=== PATIENT | male | born 1955 | race Caucasian/White ===

== ENCOUNTER 2017-08-25 09:56 | Emergency (ER) | payer MEDICAID ==
[~2017-08-25] VITALS: Ht 180.3 cm; Wt 96.2 kg
[2017-08-25] MEDS ORDERED: ATOR-2 PO (10:20)
[2017-08-25] MEDS ORDERED: LISI1TAB7 PO (10:20)
[2017-08-25] MEDS ORDERED: OMEP-110 PO (10:20)
[2017-08-25] MEDS ORDERED: DIAZ10TA PO (10:20)
[2017-08-25] MEDS ORDERED: OMNIPAQUE 350 MG/ML, 150 ML BOTTLE ONE (10:57)
[2017-08-25 11:16] VITALS: BP 175/95
[2017-08-25] MEDS ORDERED: FENTANYL PF 100 MCG/2ML ONE ×2 (12:23)
[2017-08-25] MEDS ORDERED: MIDAZOLAM 1 MG/ML, 5ML ONE (12:23)
[2017-08-25] MEDS ORDERED: DIPHENHYDRAMINE 50 MG/ML, 1ML ONE (13:39)
== END 2017-08-25 13:59 | disposition home or self-care (01) ==
LOC: ED 11:05
DX: K21.0 Gastro-esophageal reflux disease with esophagitis (principal); K22.8 Other specified diseases of esophagus; R13.10 Dysphagia, unspecified; I10 Essential (primary) hypertension; E78.00 Pure hypercholesterolemia, unspecified
CPT/HCPCS: 43239; 43248; 74220; 88305; 99152; 99153; 99285; J1200; J2250; J3010; Q9967

== ENCOUNTER 2018-05-29 18:23 | Emergency (ER) | payer MEDICAID ==
[~2018-05-29] VITALS: Ht 180.3 cm; Wt 101.7 kg
[~2018-05-29 18:23] MED LIST: ATOR-2 PO; DIAZ10TA PO; LISI1TAB7 PO; OMEP-110 PO
[2018-05-29 18:35] VITALS: BP 179/91
[2018-05-29] MEDS ORDERED: HYDROcodone/APAP 5/325 TABLET PO ONE (19:30)
[2018-05-29] MEDS ORDERED: HYDROcodone/APAP 5/325 TABLET ONE (19:42)
== END 2018-05-29 19:49 | disposition home or self-care (01) ==
LOC: ED 18:23
DX: S42.131A Displaced fracture of coracoid process, right shoulder, initial encounter for closed fracture (principal); G89.11 Acute pain due to trauma; I10 Essential (primary) hypertension; F17.200 Nicotine dependence, unspecified, uncomplicated; W01.0XXA Fall on same level from slipping, tripping and stumbling without subsequent striking against object, initial encounter; Y93.89 Activity, other specified; Y92.828 Other wilderness area as the place of occurrence of the external cause; Y99.8 Other external cause status
CPT/HCPCS: 99283

== ENCOUNTER 2020-05-21 11:20 | Emergency (ER) | payer MEDICARE, MEDICAID ==
[~2020-05-21] VITALS: Ht 180.3 cm; Wt 96.1 kg
[~2020-05-21 11:20] MED LIST changes: +LISI1TAB20 PO; -LISI1TAB7 PO
--- NOTE | 2020-05-21 11:40 | NUR ---
PT STATES LAST NIGHT WHEN HAVING DINNER HE COULDNT PUT ANY FOOD DOWN. WENT TO BATHROOM AND VOMITED FOOD UP. HAS NOT BEEN ABLE TO GET FOOD OR WATER DOWN SINCE LAST NIGHT. DENIES CHEST PAIN, SOB, HEADACHE.
--- NOTE | 2020-05-21 11:44 | NUR ---
REQUESTED ON A COCA COLA FROM DIETARY.
--- NOTE | 2020-05-21 12:03 | NUR ---
PERFORMING COCA COLA TEST ON PT IN ROOM. PT SIPPING ON COKE AND FLUID IS GOING DOWN TO STOMACH. PT IS GAGGING SLIGHTLY ON FLUID, BURPING, AND HAVING DIFFICULTY. CORRECTION THROUGH TEST PT TOOK A SIP OF COKE AND IT CAME BACK UP AND SPIT IT OUT.
--- NOTE | 2020-05-21 12:38 | NUR ---
PT OFF UNIT IN IMAGING
--- NOTE | 2020-05-21 13:20 | NUR ---
PT LYING IN BED.
[2020-05-21] MEDS ORDERED: PROPOFOL 10 MG/ML, 20ML ONE ×2 (14:09→14:11)
[2020-05-21] MEDS ORDERED: FENTANYL PF 100 MCG/2ML ONE (14:10)
[2020-05-21] MEDS ORDERED: MIDAZOLAM 1 MG/ML, 2ML ONE (14:18)
--- NOTE | 2020-05-21 14:30 | NUR ---
PT BROUGHT INTO TRAUMA 3 FOR EGD PROCEDURE. PT TOLERATED WELL AND IS NOW BEING MONITORED
[2020-05-21 14:31] VITALS: BP 161/89
--- NOTE | 2020-05-21 14:33 | NUR ---
PT IV LATE ENTRY DUE TO PT CARE.
--- NOTE | 2020-05-21 15:03 | NUR ---
REPORT GIVEN TO ENRIKE CUMMINS.
== END 2020-05-21 15:13 | disposition home or self-care (01) ==
LOC: ED 12:01
DX: T18.128A Food in esophagus causing other injury, initial encounter (principal); E78.00 Pure hypercholesterolemia, unspecified; I10 Essential (primary) hypertension; R00.0 Tachycardia, unspecified; X58.XXXA Exposure to other specified factors, initial encounter; Y93.89 Activity, other specified; Y92.89 Other specified places as the place of occurrence of the external cause; Y99.8 Other external cause status
CPT/HCPCS: 74220; 99285

== ENCOUNTER 2020-10-11 09:27 | Day surgery (SDC) | payer MEDICARE, MEDICAID ==
[~2020-10-11] VITALS: Ht 180.3 cm; Wt 95.0 kg
--- NOTE | 2020-10-11 09:57 | NUR ---
PATIENT WALKED BACK FROM TRIAGE WITH CHIEF C/O "MY ESOPHAGUS IS CLOSING UP." PER PATIENT SYMPTOMS STARTED LAST NIGHT AROUND 7, AND HE HAS HAD THIS ISSUE BEFORE. HE HAS SURGERY SCHEDULED IN A FEW WEEKS AT DR. GRANGER'S OFFICE. CUBA, CONNECTED TO MONITOR, VSS, CALL LIGHT WITHIN REACH. FAMILY MEMBER AT BEDSIDE.
--- NOTE | 2020-10-11 09:57 | NUR ---
ERMD AT BEDSIDE FOR EVALUATION.
--- NOTE | 2020-10-11 10:22 | NUR ---
20 GAUGE IV STARTED LEFT AC, BLOOD COLLECTED, LABELLED AND SENT TO LAB, [facility]. CONNECTED TO MONITOR, VSS, CALL LIGHT WITHIN REACH.
[2020-10-11 10:26] LABS: BASOPHILS % (AUTO) 1 % (0-1); EOSINOPHILS % (AUTO) 1 % (1-7); LYMPHOCYTES % (AUTO) 20 % (22-44); MEAN CORPUSCULAR HEMOGLOBIN 33.8 pg (27.5-34.5); MEAN CORPUSCULAR HGB CONC 34.4 g/dL (33.2-36.2); MEAN PLATELET VOLUME 9.4 fL (7.4-10.4); MONOCYTES % (AUTO) 9 % (2-9); NEUTROPHILS % (AUTO) 69 % (42-75); PLATELET COUNT 212 x10^3/uL (130-400); RED BLOOD COUNT 4.75 x10^6/uL (4.38-5.82); RED CELL DISTRIBUTION WIDTH 13.9 % (9.4-14.8)
[2020-10-11] MEDS ORDERED: SODIUM CHLORIDE FLUSH 10ML SYR IVF ONE (10:30)
[2020-10-11] MEDS ORDERED: SODIUM CHLORIDE 0.9% 1,000ML IVBOLUS ONE (10:30)
[2020-10-11 10:35] LABS: ALANINE AMINOTRANSFERASE 60 U/L (12-78); ALBUMIN 3.6 g/dL (3.4-5.0); ANION GAP 4 mmol/L (5-15); CALCIUM 8.5 mg/dL (8.5-10.1); CHLORIDE 107 mmol/L (98-107); CREATININE 0.81 mg/dL (0.7-1.3)
[2020-10-11 10:37] LABS: ALKALINE PHOSPHATASE 91 U/L (45-117); BILIRUBIN,TOTAL 1.3 mg/dL (0.2-1.0); TOTAL PROTEIN 7.2 g/dL (6.4-8.2)
--- NOTE | 2020-10-11 10:43 | NUR ---
PATIENT TO IMAGING.
[2020-10-11 11:28] VITALS: BP 172/90
--- NOTE | 2020-10-11 11:28 | NUR ---
PATIENT BACK FROM IMAGING, RESTING IN [facility], CONNECTED TO MONITOR, VSS, CALL LIGHT WITHIN REACH, NO FURTHER NEEDS AT THIS TIME. WAITING FOR ESOPHAGRAM RESULTS.
--- NOTE | 2020-10-11 12:02 | NUR ---
Break RN note: Pt in T2 for upper endoscopy. Nancy CUMMINS to perform procedural sedation.
[2020-10-11] MEDS ORDERED: PROPOFOL 10 MG/ML, 20ML ONE (12:10)
[2020-10-11] MEDS ORDERED: PROPOFOL 10 MG/ML, 20ML IVPush ONE ×2 (12:30→14:00)
--- NOTE | 2020-10-11 13:07 | NUR ---
1129: TIME OUT 1130: START 1242: END SEE PROCEDURAL SEDATION PACKET PT WAS FULLY AWAKE BY END OF ENDOSCOPY WASTED 160MG PROPOFOL WITH NEVIN RN INTO APPROP REC. PT DRINKING WATER, VSS. RIDE ON WAY TO PICK HIM UP.
--- NOTE | 2020-10-11 13:09 | NUR ---
Report from Nancy CUMMINS. Pt resting in bed, drinking water, NADN, denies needs. Awaiting dc paperwork and pt's family to come pick him up.
--- NOTE | 2020-10-11 13:09 | NUR ---
Previous note by this RN, not Adeline fitch.
== END 2020-10-11 14:06 | disposition home or self-care (01) ==
LOC: ED 11:24 → OUT 11:24 → ED 14:06 → EDSTATUS 15:28
PROVIDERS: ATTEND Emergency Medicine
DX: T18.128A Food in esophagus causing other injury, initial encounter (principal); I10 Essential (primary) hypertension; E78.00 Pure hypercholesterolemia, unspecified; F17.290 Nicotine dependence, other tobacco product, uncomplicated; Z79.899 Other long term (current) drug therapy; X58.XXXA Exposure to other specified factors, initial encounter; Y93.89 Activity, other specified; Y92.89 Other specified places as the place of occurrence of the external cause; Y99.8 Other external cause status
CPT/HCPCS: 36415; 43235; 74220; 80053; 85025; 99152; 99285; C1725; J7030; 96360